=== PATIENT | male | born 1945 | race Two or more races ===

== ENCOUNTER 2020-08-26 08:19 | Outpatient (CLI) | payer OTHER ==
[2020-08-26] MEDS ORDERED: GABAPENTIN600 MG PO (14:23)
[2020-08-26] MEDS ORDERED: LUPRON PO (14:24)
[2020-08-26] MEDS ORDERED: CASODEX50 MG PO (14:24)
== END 2020-08-26 08:43 | disposition home or self-care (01) ==
LOC: TOM 08:19
PROVIDERS: ATTEND Surgery
DX: Q61.01 Congenital single renal cyst (principal); K40.90 Unilateral inguinal hernia, without obstruction or gangrene, not specified as recurrent; R59.0 Localized enlarged lymph nodes; K92.1 Melena; D50.8 Other iron deficiency anemias
CPT/HCPCS: 71260; 74177; Q9965

== ENCOUNTER 2020-08-26 10:15 | Inpatient (IN) | payer OTHER ==
[~2020-08-26] VITALS: Ht 162.6 cm; Wt 68.0 kg
[2020-08-26] MEDS ORDERED: GABAPENTIN600 MG PO (14:23)
[2020-08-26] MEDS ORDERED: CASODEX50 MG PO (14:24)
[2020-08-26] MEDS ORDERED: LUPRON PO (14:24)
[2020-09-05] MEDS ORDERED: CLONAZEPAM0.5 MG (08:09)
[2020-09-05] MEDS ORDERED: LUPRON DEPOT11.25 M2 (08:15)
[2020-09-05] MEDS ORDERED: PERCOCET 5-3251 EACH PO (11:33)
[2020-09-05] MEDS ORDERED: PRILOSEC OTC20 MG PO (11:33)
== END 2020-09-05 12:24 | disposition home or self-care (01) | DRG 330 ==
LOC: EDUNIT# 10:15 → O/R 09-02 10:15 → SURG 09-02 17:53
PROVIDERS: ADMIT Surgery; ATTEND Surgery
PROC: 07BB4ZZ Excision of Mesenteric Lymphatic, Percutaneous Endoscopic Approach (ICD-10-PCS; 2020-09-02)
PROC: 0DTG4ZZ Resection of Left Large Intestine, Percutaneous Endoscopic Approach (ICD-10-PCS; principal; 2020-09-02 12:30)
DX: C18.5 Malignant neoplasm of splenic flexure (principal); C18.9 Malignant neoplasm of colon, unspecified; K56.50 Intestinal adhesions [bands], unspecified as to partial versus complete obstruction; K92.1 Melena; C88.0 Waldenstrom macroglobulinemia; R59.0 Localized enlarged lymph nodes; D50.9 Iron deficiency anemia, unspecified

== ENCOUNTER 2020-09-14 18:44 | Inpatient (IN) | payer OTHER ==
[~2020-09-14] VITALS: Ht 162.6 cm; Wt 68.9 kg
[~2020-09-14 18:44] MED LIST: CASODEX50 MG PO; CLONAZEPAM0.5 MG; GABAPENTIN600 MG PO; LUPRON DEPOT11.25 M2; LUPRON PO; PERCOCET 5-3251 EACH PO; PRILOSEC OTC20 MG PO
[2020-11-04] MEDS ORDERED: LUPRON DEPOT3.75 M1 IM (13:34)
== END 2020-09-16 13:44 | disposition home or self-care (01) | DRG 392 ==
LOC: ER 18:44 → SEC-K 09-15 08:14 → SURG 09-16 13:18
PROVIDERS: ADMIT Surgery; ATTEND Surgery
DX: R10.84 Generalized abdominal pain (principal); C18.9 Malignant neoplasm of colon, unspecified; R11.10 Vomiting, unspecified; C88.0 Waldenstrom macroglobulinemia; Z90.49 Acquired absence of other specified parts of digestive tract

== ENCOUNTER 2020-11-11 06:00 | Day surgery (SDC) | payer OTHER ==
[~2020-11-11 06:00] MED LIST changes: +LUPRON DEPOT3.75 M1 IM
[2020-11-11] MEDS ORDERED: PERCOCET 5-3251 EACH PO (09:50)
== END 2020-11-11 11:35 | disposition home or self-care (01) ==
LOC: CIR.AMB 06:00
PROVIDERS: ATTEND Surgery
DX: C18.5 Malignant neoplasm of splenic flexure (principal); Z20.822 Contact with and (suspected) exposure to COVID-19
CPT/HCPCS: 36561; C1751

== ENCOUNTER 2021-11-08 09:45 | Inpatient (IN) | payer OTHER ==
[~2021-11-08] VITALS: Ht 162.6 cm; Wt 70.3 kg
[2021-11-10] MEDS ORDERED: DRY EYE RELIEF15 ML (11:43)
[2021-11-10] MEDS ORDERED: OPTIVE EYE DROP15 ML (11:43)
[2021-11-10] MEDS ORDERED: ADVIL LIQUI-GE200 MG (11:43)
[2021-11-10] MEDS ORDERED: EMERGEN-C 1,01000 MG (11:44)
[2021-11-10] MEDS ORDERED: BISACODYL5 MG (11:44)
[2021-11-10] MEDS ORDERED: SIMVASTATIN10 MG (11:44)
[2021-11-10] MEDS ORDERED: DSS100 MG (11:44)
== END 2021-11-14 12:41 | disposition home or self-care (01) | DRG 330 ==
LOC: SURH 11-10 09:45 → O/R 11-10 11:14 → SURH 11-10 11:14
PROVIDERS: ADMIT Surgery; ATTEND Surgery
PROC: 07BB4ZZ Excision of Mesenteric Lymphatic, Percutaneous Endoscopic Approach (ICD-10-PCS; 2021-11-10)
PROC: 0DTF4ZZ Resection of Right Large Intestine, Percutaneous Endoscopic Approach (ICD-10-PCS; principal; 2021-11-10 11:45)
DX: C18.2 Malignant neoplasm of ascending colon (principal); C18.5 Malignant neoplasm of splenic flexure; C77.9 Secondary and unspecified malignant neoplasm of lymph node, unspecified; K92.1 Melena; R59.0 Localized enlarged lymph nodes; Z20.822 Contact with and (suspected) exposure to COVID-19; D12.1 Benign neoplasm of appendix

== ENCOUNTER 2022-05-04 05:58 | Day surgery (SDC) | payer OTHER ==
[~2022-05-04 05:58] MED LIST changes: +ADVIL LIQUI-GE200 MG; +BISACODYL5 MG; +DRY EYE RELIEF15 ML; +DSS100 MG; +EMERGEN-C 1,01000 MG; +OPTIVE EYE DROP15 ML; +SIMVASTATIN10 MG
[2022-05-04] MEDS ORDERED: ULTRACET PO (10:51)
== END 2022-05-04 13:10 | disposition home or self-care (01) ==
LOC: CIR.AMB 05:58
PROVIDERS: ATTEND Surgery
DX: C18.2 Malignant neoplasm of ascending colon (principal); Z20.822 Contact with and (suspected) exposure to COVID-19; Z88.2 Allergy status to sulfonamides; Z88.0 Allergy status to penicillin; Z86.16 Personal history of COVID-19; Z85.46 Personal history of malignant neoplasm of prostate; E78.5 Hyperlipidemia, unspecified

== ENCOUNTER 2023-05-23 10:44 | Emergency (ER) | payer OTHER ==
[~2023-05-23] VITALS: Ht 162.6 cm; Wt 72.6 kg
[~2023-05-23 10:44] MED LIST changes: +ULTRACET PO
[2023-05-23 12:49] LABS: CALCIUM 10.8 mg/dL (8.5-10.1); CREATININE SERUM 1.09 mg/dL (0.70-1.30); GFR 65.77; POTASSIUM 3.23 mEq/L (3.5-5.1)
[2023-05-23 12:54] LABS: HEMOGLOBIN 14.2 g/dL (13-16.00); MEAN CELL VOLUME 93.4 fL (80.0-100.00); MEAN CORPUSCULAR HEMOGLOBIN 30.8 pg (27.00-32.0); PLATELET COUNT 225 K/uL (150-450); RED CELL DISTRIBUTION WIDTH 14.6 % (11.5-14.5)
[2023-05-23 15:03] LABS: PH,URINE 5.5 (5.0-8.0); URINE APPEARANCE Clear; URINE BILIRRUBIN Negative (NEGATIVE); URINE BLOOD Trace; URINE COLOR Yellow; URINE GLUCOSE Negative (NEGATIVE); URINE LEUKOCYTE Negative; URINE NITRATE Negative; URINE UROBILINOGEN 0.2 E.U./dl
[2023-05-23 15:05] LABS: URINE BACTERIA 83.1 uL (0.0-1933); URINE EPITHELIAL CELLS 11.1 uL (0.0-38.8); URINE RBC 11.2 uL (0.0-20.8); URINE WBC 9.8 uL (0.0-23.2)
[2023-05-23 15:39] LABS: URINE MUCUS MODERATE; URINE PROTEIN 100 (NEGATIVE)
[2023-05-23 15:40] LABS: URINE CRYSTALS FEW /HPF
== END 2023-05-23 18:53 | disposition home or self-care (01) ==
LOC: ER 10:45
PROVIDERS: Emergency Medicine
DX: K52.89 Other specified noninfective gastroenteritis and colitis (principal); Z88.0 Allergy status to penicillin; Z88.2 Allergy status to sulfonamides; Z85.038 Personal history of other malignant neoplasm of large intestine; E11.9 Type 2 diabetes mellitus without complications
CPT/HCPCS: 36415; 96365; 96366; 99284; J0744; J3490; J7030

== ENCOUNTER 2024-09-25 06:44 | Day surgery (SDC) | payer OTHER ==
[2024-09-21 09:34] VITALS: BP 141/90
[~2024-09-25] VITALS: Ht 162.6 cm; Wt 72.6 kg
[~2024-09-25 06:44] MED LIST changes: +VANCOMYCIN HCL 1,000 MG VIAL IV SCH
[2024-09-25] MEDS ORDERED: TRAM1TAB98 PO (11:13)
== END 2024-09-25 14:15 | disposition home or self-care (01) ==
LOC: CIR.AMB 06:44
PROVIDERS: ATTEND Surgery
DX: T82.514A Breakdown (mechanical) of infusion catheter, initial encounter (principal); C18.2 Malignant neoplasm of ascending colon; C18.5 Malignant neoplasm of splenic flexure; C78.7 Secondary malignant neoplasm of liver and intrahepatic bile duct; M19.90 Unspecified osteoarthritis, unspecified site